=== PATIENT | male | born 1955 | race African-American/Black ===

== ENCOUNTER 2018-05-01 05:53 | Observation (INO) ==
[2018-04-25 10:35] LABS: Basophils % 0.8 % (0.0-0.8); Eosinophils # 0.3 10*3/uL (0.0-0.87); Eosinophils % 6.6 % (0.00-10.9); Hematocrit 45.5 VOL% (42.0-52.0); Hemoglobin 14.3 GM/DL (14.0-18.0); Immature Granulocytes % 0.6 %; Immature Granulocytes Absolute 0.03 #; Lymphocytes # 2.1 10*3/uL (1.4-4.0); Lymphocytes % 43.2 % (21.2-54.2); Mean Corpuscular HGB Conc 31.4 GM/DL (32-36); Mean Corpuscular Hemoglobin 29 PG (27-34); Mean Corpuscular Volume 92.5 FL (87-102); Mean Platelet Volume 10.4 FL (9.6-12.0); Monocytes # 0.6 10*3/uL (0.11-0.8); Monocytes % 11.9 % (1.7-12.7); Neutrophils # 1.8 10*3/uL (1.4-7.4); Neutrophils % 36.9 % (38.7-73.9); Platelet Count 209 T/CUMM (130-400); Red Blood Count 4.92 MC/CUMM (3.8-5.5); Red Cell Distribution Width 13.2 % (9.3-17.3); White Blood Count 4.9 T/CUMM (4-12)
[2018-04-25 10:58] LABS: Albumin 3.7 G/DL (3.4-5.0); Atypical Lymphocytes Few; Bilirubin,Total 0.6 MG/DL (0.2-1.0); Eosinophils 6 % (0-10); Hypochromasia 1+; Lymphocytes 38 % (20-55); Osmolality,Calculated 279.5 MOS/KG (273-304); Potassium 4.1 MMOL/L (3.5-5.1); Segmented Neutrophils 45 % (50-85); Total Cells Counted 100; Total Protein 8.3 G/DL (6.4-8.3)
[2018-04-25 10:59] LABS: Microcytosis Slight; Platelet Estimate Normal
[2018-05-01] MEDS ORDERED: cefTRIAXone 1,000 MG VIAL ONE (06:07)
[2018-05-01] MEDS: LACTATED RINGERS 1,000 ML IV SCH ×3 (06:40→15:06)
[2018-05-01] MEDS ORDERED: SODIUM PHOSPHATE ENEMA 133 ML BOTTLE RECTAL ONE (06:46)
[2018-05-01] MEDS ORDERED: cefTRIAXone 1,000 MG in SYRINGE 1 EACH IV ONE (07:00)
[2018-05-01 08:32] LABS: Amorphous Crystals,Urine Occasional /HPF (Few); Apearance,Urine CLEAR (Clear); Bacteria,Urine Occasional /HPF (Few); Bilirubin,Urine Negative (Negative); Blood, Urine Small mg/dL (Negative); Glucose,Urine (UA) Negative (Negative); Ketones,Urine Negative (Negative); Mucus,Urine Occasional /LPF (Occasional); Nitrite,Urine Negative (Negative); Protein,Urine Negative; RBC,Urine 28 /HPF (0-4); Sperm,Urine Occasional /HPF (Negative); Urine Color Yellow (Yellow); Urine Specific Gravity 1.024 (1.001-1.035); Urine Urobilinogen < 2.0 EU/DL (0.2-1.0); WBC,Urine 1 /HPF (0-6)
[2018-05-01] MEDS ORDERED: SUGAMMADEX 200 MG/2 ML VIAL IV ONE (12:19)
[2018-05-01] MEDS ORDERED: ONDANSETRON 4 MG/2 ML VIAL IV PRN ×2 (13:53→14:17)
[2018-05-01] MEDS ORDERED: HYDROmorphone 2 MG/1 ML VIAL IV PRN ×2 (13:53→14:17)
[2018-05-01] MEDS ORDERED: PROMETHAZINE 25 MG/1 ML VIAL IM PRN (13:53)
[2018-05-01] MEDS ORDERED: diphenhydrAMINE 50 MG/1 ML VIAL IV PRN (13:57)
[2018-05-01] MEDS ORDERED: DOCUSATE SODIUM 100 MG CAPSULE PO PRN (13:58)
[2018-05-01] MEDS ORDERED: ONDANSETRON 4 MG/2 ML VIAL ONE ×2 (14:11→14:27)
[2018-05-01] MEDS ORDERED: HYDROmorphone 2 MG/1 ML VIAL ONE (14:11)
[2018-05-01] MEDS ORDERED: MEPERIDINE 25 MG/1 ML VIAL IV PRN (14:17)
[2018-05-01] MEDS ORDERED: MEPERIDINE 25 MG/1 ML VIAL ONE (14:17)
[2018-05-01] MEDS ORDERED: PROPOFOL 200 MG/20 ML VIAL IV ONE (14:26)
[2018-05-01] MEDS ORDERED: DESFLURANE 1 UNIT/15 MINUTE INH ONE (14:26)
[2018-05-01] MEDS ORDERED: MIDAZOLAM 2 MG/2 ML VIAL ONE (14:27)
[2018-05-01] MEDS ORDERED: fentaNYL 100 MCG/2 ML VIAL ONE (14:27)
[2018-05-01] MEDS ORDERED: ACETAMINOPHEN 1,000 MG/100 ML VIAL IV ONE (14:27)
[2018-05-01] MEDS ORDERED: ROCURONIUM 100 MG/10 ML VIAL IV ONE (14:27)
[2018-05-01] MEDS ORDERED: LACTATED RINGERS 1,000 ML IV ONE (14:28)
[2018-05-01] MEDS ORDERED: HYDROmorphone PCA 30 MG/30 ML SYRINGE IV ONE (14:31)
[2018-05-01 14:57] LABS: Basophils % 0.1 % (0.0-0.8); Hematocrit 44.8 VOL% (42.0-52.0); Hemoglobin 14.4 GM/DL (14.0-18.0); Immature Granulocytes % 0.4 %; Immature Granulocytes Absolute 0.05 #; Lymphocytes # 0.9 10*3/uL (1.4-4.0); Lymphocytes % 7.7 % (21.2-54.2); Mean Corpuscular HGB Conc 32.1 GM/DL (32-36); Mean Corpuscular Hemoglobin 29 PG (27-34); Mean Corpuscular Volume 90.5 FL (87-102); Mean Platelet Volume 10.1 FL (9.6-12.0); Monocytes # 0.2 10*3/uL (0.11-0.8); Monocytes % 1.3 % (1.7-12.7); Neutrophils # 10.2 10*3/uL (1.4-7.4); Neutrophils % 90.5 % (38.7-73.9); Platelet Count 235 T/CUMM (130-400); Red Blood Count 4.95 MC/CUMM (3.8-5.5); White Blood Count 11.3 T/CUMM (4-12)
[2018-05-01 15:16] LABS: Calcium 8.8 MG/DL (8.5-10.1); Osmolality,Calculated 282.8 MOS/KG (273-304); Potassium 4.3 MMOL/L (3.5-5.1)
[2018-05-01] MEDS: SODIUM CHLORIDE 0.9% 1,000 ML IV SCH (18:16)
[2018-05-01] MEDS: ACETAMINOPHEN 325 MG TABLET PO SCH ×2 (19:09→21:07)
[2018-05-01] MEDS: FAMOTIDINE 20 MG TABLET PO SCH (21:07)
[2018-05-02] MEDS: ACETAMINOPHEN 325 MG TABLET PO SCH ×4 (02:51→20:41)
[2018-05-02 06:46] LABS: Basophils % 0.2 % (0.0-0.8); Eosinophils % 0.1 % (0.00-10.9); Hematocrit 38.7 VOL% (42.0-52.0); Immature Granulocytes % 0.5 %; Immature Granulocytes Absolute 0.04 #; Lymphocytes % 22.1 % (21.2-54.2); Mean Corpuscular HGB Conc 31.8 GM/DL (32-36); Mean Corpuscular Hemoglobin 29 PG (27-34); Mean Corpuscular Volume 91.3 FL (87-102); Mean Platelet Volume 10.6 FL (9.6-12.0); Monocytes # 1.3 10*3/uL (0.11-0.8); Monocytes % 15.2 % (1.7-12.7); Neutrophils # 5.5 10*3/uL (1.4-7.4); Neutrophils % 61.9 % (38.7-73.9); Platelet Count 200 T/CUMM (130-400); Red Blood Count 4.24 MC/CUMM (3.8-5.5); Red Cell Distribution Width 13.3 % (9.3-17.3); White Blood Count 8.8 T/CUMM (4-12)
[2018-05-02 06:56] LABS: Hemoglobin 12.3 GM/DL (14.0-18.0)
[2018-05-02 07:14] LABS: Calcium 8.4 MG/DL (8.5-10.1); Osmolality,Calculated 282.3 MOS/KG (273-304); Potassium 3.9 MMOL/L (3.5-5.1)
[2018-05-02 07:16] LABS: Band Neutrophils 1 % (0-10); Hypochromasia 1+; Lymphocytes 22 % (20-55); Microcytosis Slight; Segmented Neutrophils 62 % (50-85); Total Cells Counted 100
[2018-05-02 07:17] LABS: Atypical Lymphocytes Few; Platelet Estimate Normal
[2018-05-02] MEDS: SODIUM CHLORIDE 0.9% 1,000 ML IV SCH ×2 (08:31)
[2018-05-02] MEDS: LACTATED RINGERS 1,000 ML IV SCH (08:31)
[2018-05-02] MEDS: OXYBUTYNIN XL 5 MG TABLET PO SCH (08:55)
[2018-05-02] MEDS: FAMOTIDINE 20 MG TABLET PO SCH (20:41)
[2018-05-03] MEDS: ACETAMINOPHEN 325 MG TABLET PO SCH ×2 (02:18→09:40)
[2018-05-03 07:45] LABS: Calcium 8.6 MG/DL (8.5-10.1); Osmolality,Calculated 276.5 MOS/KG (273-304)
[2018-05-03 07:47] LABS: Basophils % 0.3 % (0.0-0.8); Eosinophils # 0.1 10*3/uL (0.0-0.87); Eosinophils % 0.9 % (0.00-10.9); Hematocrit 43.2 VOL% (42.0-52.0); Hemoglobin 14.1 GM/DL (14.0-18.0); Immature Granulocytes % 0.3 %; Immature Granulocytes Absolute 0.02 #; Lymphocytes % 27.2 % (21.2-54.2); Mean Corpuscular HGB Conc 32.6 GM/DL (32-36); Mean Corpuscular Hemoglobin 30 PG (27-34); Mean Corpuscular Volume 90.6 FL (87-102); Mean Platelet Volume 10.6 FL (9.6-12.0); Monocytes % 12.7 % (1.7-12.7); Neutrophils # 4.4 10*3/uL (1.4-7.4); Neutrophils % 58.6 % (38.7-73.9); Platelet Count 246 T/CUMM (130-400); Red Blood Count 4.77 MC/CUMM (3.8-5.5); Red Cell Distribution Width 13.2 % (9.3-17.3); White Blood Count 7.5 T/CUMM (4-12)
[2018-05-03] MEDS ORDERED: MUPIROCIN 2% OINT 22 GM TUBE TOP SCH (09:30)
[2018-05-03] MEDS: OXYBUTYNIN XL 5 MG TABLET PO SCH (09:40)
[2018-05-03 10:29] VITALS: BP 158/87
== END 2018-05-03 11:55 | disposition home or self-care (01) ==
LOC: N.SDSINP 05:53 → N.OR 05:53 → N.SDSINP 05:55 → N.5E 16:19
PROVIDERS: ADMIT Surgery; ATTEND Surgery